=== PATIENT | male | born 2000 | race Caucasian/White ===

== ENCOUNTER 2018-07-20 23:20 | Emergency (ER) | payer OTHER ==
--- NOTE | 2018-07-20 23:31 | ER Report ---
History and Physical Time Seen By MD: 23:30 HPI/ROS CHIEF COMPLAINT: finger laceration HISTORY OF PRESENT ILLNESS: This is a 18 year old male. Cut left middle finger at work at [employer]. Normal motor and sensory function. Bleeding controlled. Up to date on immunizations. Allergies: Coded Allergies: Penicillins (Verified Allergy, Intermediate, "RASH", 07/20/18) Home Meds No Active Prescriptions or Reported Meds Reviewed Nurses Notes: Yes Constitutional Vital Sign - Last 24 Hours 07/20/18 07/20/18 07/20/18 23:30 23:35 23:40 Temp 99.0 Pulse 80 80 Resp 12 B/P (MAP) 149/104 (119) 142/114 Pulse Ox 94 92 O2 Delivery Room Air Physical Exam General: Alert, no acute distress. Musculoskeletal: Normal motor function, good strength with resisted extension and flexion. Neuro: Normal sensation Cardiovascular: Normal cap refill Skin: 1.5cm laceration middle phalanx of 3rd finger right hand. Medical Decision Making ED Course/Re-evaluation ED Course Procedure: Laceration Repair Verbal consent from patient after discussing repair options, risks and benefits. Wound cleaned extensively with Hibiclens and saline. Anesthesia: 1% lidocaine without epinephrine, 0.5% bupivacaine. Location: right middle 3rd phalanx. Length: 1.5 cm. Character: into subcutaneous tissue. There were no deep structures involved. No tendon injury was identified. Wound repair: 4 interrupted 5-0 Prolene sutures. The wound repair was simple and performed by myself. Wound care instructions discussed. Sutures need to be removed in 7 days. Decision to Disposition Date: Jul 21, 2018 Decision to Disposition Time: 00:04 Depart Departure Latest Vital Signs Vital Signs Date Time Temp Pulse Resp B/P (MAP) Pulse Ox O2 Delivery O2 Flow Rate FiO2 07/20/18 23:40 99.0 80 12 142/114 92 Room Air Impression: Primary Impression: Laceration of finger of left hand Condition: Improved Disposition: HOME OR SELF-CARE New Scripts No Active Prescriptions or Reported Meds Patient Instructions: Finger Laceration (ED) Additional Instructions: Wound Care: Wash the wound once a day with soap and water. Dry the wound and apply a small amount of antibiotic ointment with a clean dressing. If the dressing becomes wet or dirty, repeat cleaning and dressing as above. No soaking the wound; no swimming. Stitches need to be removed in 5-7 days. Pain Control: Use Tylenol or ibuprofen for pain. Using and ice pack can help reduce swelling. Problem Qualifiers Primary Impression: Laceration of finger of left hand Encounter type: initial encounter Finger: middle finger Damage to nail status: without damage Foreign body presence: without foreign body Qualified Codes: S61.213A - Laceration without foreign body of left middle finger without damage to nail, initial encounter DEVIN LUDWIG MD Jul 20, 2018 23:31
[2018-07-20 23:40] VITALS: BP 142/114
== END 2018-07-21 00:29 | disposition home or self-care (01) ==
LOC: ER 23:36
DX: S61.213A Laceration without foreign body of left middle finger without damage to nail, initial encounter (principal)
CPT/HCPCS: 99282

== ENCOUNTER 2018-07-26 14:03 | Emergency (ER) | payer OTHER ==
[2018-07-26 14:09] VITALS: BP 129/85
--- NOTE | 2018-07-26 14:12 | ER Report ---
History and Physical Time Seen By MD: 14:12 HPI/ROS SUTURES PLACED A WEeK AGO AFTER CUTTING FINGER AT WORK. here for suture removal. Allergies: Coded Allergies: Penicillins (Verified Allergy, Intermediate, "RASH", 07/20/18) Home Meds No Active Prescriptions or Reported Meds Reviewed Nurses Notes: Yes Old Medical Records Reviewed: Yes Hx Substance Use Disorder: No Hx Alcohol Use: No Constitutional Vital Sign - Last 24 Hours 07/26/18 14:09 Pulse 58 Resp 16 B/P (MAP) 129/85 Pulse Ox 95 Physical Exam General appearance: alert no distress Right hand: There is no significant swelling. Sutures are in place with some mild surrounding erythema. Skin: see above Neurologic exam: The patient has normal sensation distal to the injury. Tendon function is intact. Vascular exam: Normal pulses and capillary refill in the fingers Medical Decision Making ED Course/Re-evaluation ED Course sutures removed. there is some mild erythema surrounding the healed laceration. No drainage from the wound. No pain in the joint. I think the erythema is reaction to the sutures and laceration. I do not think it is infection. Will not place on abx at this time. Bacitracin placed and covered with bandage Decision to Disposition Date: Jul 26, 2018 Decision to Disposition Time: 15:55 Depart Departure Latest Vital Signs Vital Signs Date Time Temp Pulse Resp B/P (MAP) Pulse Ox O2 Delivery O2 Flow Rate FiO2 07/26/18 14:09 58 16 129/85 95 Impression: Primary Impression: Visit for suture removal Condition: Improved Disposition: HOME OR SELF-CARE New Scripts No Active Prescriptions or Reported Meds Patient Instructions: Acute Wound Care (ED) CAROLA HERNANDEZ MD Jul 26, 2018 14:12
== END 2018-07-26 15:24 | disposition home or self-care (01) ==
LOC: ER 14:15
DX: S61.411D Laceration without foreign body of right hand, subsequent encounter (principal)
CPT/HCPCS: 99281